=== PATIENT | female | born 1960 | race Caucasian/White ===

== ENCOUNTER → 2020-11-06 | Outpatient (CLI) | payer OTHER ==
[~2020-11-06] MED LIST: ASPIRIN81 MG PO; BACTRIM DS TAB1 EACH PO; BENADRYL 25MG C25 MG PO; BENTYL 20MG TAB20 MG PO; CARAFATE1 GM PO; CLEOCIN HCL300 MG PO; CYANOCOBAL1000 MCG/1 IM; DIGITEK125 MCG PO; DOXYCYCLINE HY100 MG PO; ELIQUIS5 MG PO; FLORASTOR250 MG PO; GABAPENTIN300 MG PO; IBUPROFEN800 MG PO; ISORDIL TAB 3030 MG PO; ISOSORBIDE MONO30 MG PO; LASIX20 MG PO; LASIX40 MG PO; LEVAQUIN500 MG PO; LIPITOR40 MG PO; LORADAMED10 MG PO; MONTELUKAST SOD10 MG PO; NITROSTAT0.4 MG SL; NORCO 5-325 TA1 EACH PO; NORCO 7.5-3251 EACH PO; OMEPRAZOLE40 MG PO; OMNICEF 300 MG300 MG PO; PROTONIX40 MG PO; PROVENTIL HFA6.7 GM INH; PROZAC40 MG PO; REGLAN10 MG PO; SARAFEM20 MG PO; SOTALOL AF80 MG PO; SOTALOL80 MG PO; TIZANIDINE HCL4 MG PO; TRAZODONE HCL100 MG PO; ULTRAM50 MG PO; VENTOLIN HFA 66.7 GM INH; VITAMIN C500 M1 PO; VITAMIN D250000 UNIT PO; ZANAFLEX4 MG PO; ZOFRAN4 MG PO
== END ==
LOC: EXRD 13:21
DX: M54.5 Low back pain (principal); M47.816 Spondylosis without myelopathy or radiculopathy, lumbar region
CPT/HCPCS: 72100

== ENCOUNTER 2020-11-30 22:06 | Emergency (ER) | payer OTHER ==
[~2020-11-30 22:06] MED LIST changes: -BACTRIM DS TAB1 EACH PO; -DOXYCYCLINE HY100 MG PO; -FLORASTOR250 MG PO; -REGLAN10 MG PO; -ULTRAM50 MG PO
[2020-11-30 23:19] LABS: RED BLOOD COUNT 4.09 M/UL (4.00-5.10); WHITE BLOOD COUNT 9.2 K/UL (4.5-11.0)
[2020-11-30 23:37] LABS: BUN/CREATININE RATIO 21 (0-10)
[2020-12-01] MEDS ORDERED: FLORASTOR250 MG PO (02:07)
[2020-12-01] MEDS ORDERED: REGLAN10 MG PO (02:07)
== END 2020-12-01 02:05 | disposition home or self-care (01) ==
LOC: ER1 22:06
PROVIDERS: Emergency Medicine
DX: R11.2 Nausea with vomiting, unspecified (principal); R19.7 Diarrhea, unspecified; I48.91 Unspecified atrial fibrillation; Z20.822 Contact with and (suspected) exposure to COVID-19; I10 Essential (primary) hypertension; Z88.0 Allergy status to penicillin; Z88.1 Allergy status to other antibiotic agents; Z87.891 Personal history of nicotine dependence
CPT/HCPCS: 0240U; 36415; 80053; 83690; 85025; 99284

== ENCOUNTER → 2020-12-10 | Outpatient (CLI) | payer OTHER ==
[~2020-12-10] MED LIST changes: +BACTRIM DS TAB1 EACH PO; +DOXYCYCLINE HY100 MG PO; +FLORASTOR250 MG PO; +REGLAN10 MG PO; +ULTRAM50 MG PO
== END ==
LOC: EXRD 14:58
DX: M54.6 Pain in thoracic spine (principal)
CPT/HCPCS: 72070; 73030

== ENCOUNTER → 2021-02-07 | Outpatient (CLI) | payer OTHER | LOC: KOH-I 15:01 | DX: M79.672 Pain in left foot (principal); M79.671 Pain in right foot; Z98.890 Other specified postprocedural states | CPT/HCPCS: 73630 ==

== ENCOUNTER → 2021-03-22 | Outpatient (CLI) | payer OTHER | LOC: KOH-I 09:38 | DX: G57.62 Lesion of plantar nerve, left lower limb (principal) | CPT/HCPCS: 73700 ==

== ENCOUNTER 2021-03-30 20:59 | Emergency (ER) | payer OTHER ==
[~2021-03-30 20:59] MED LIST changes: -BACTRIM DS TAB1 EACH PO; -DOXYCYCLINE HY100 MG PO; -ULTRAM50 MG PO
[2021-03-30 22:17] LABS: HEMOGLOBIN 12.4 gm/dl (12.3-15.3); RED BLOOD COUNT 3.94 M/UL (4.00-5.10); WHITE BLOOD COUNT 9.6 K/UL (4.5-11.0)
[2021-03-30 22:35] LABS: BUN/CREATININE RATIO 8 (0-10)
[2021-03-31] MEDS ORDERED: BACTRIM DS TAB1 EACH PO (00:11)
== END 2021-03-31 00:25 | disposition home or self-care (01) ==
LOC: ER1 20:59
PROVIDERS: Physician Assistant
DX: N39.0 Urinary tract infection, site not specified (principal); I11.9 Hypertensive heart disease without heart failure; J44.9 Chronic obstructive pulmonary disease, unspecified; Z90.49 Acquired absence of other specified parts of digestive tract; Z87.440 Personal history of urinary (tract) infections
CPT/HCPCS: 80053; 81001; 85025; 99284

== ENCOUNTER 2021-04-04 19:17 | Emergency (ER) | payer OTHER ==
[~2021-04-04 19:17] MED LIST changes: +BACTRIM DS TAB1 EACH PO
[2021-04-04 20:26] LABS: HEMOGLOBIN 13.3 gm/dl (12.3-15.3); RED BLOOD COUNT 4.19 M/UL (4.00-5.10); WHITE BLOOD COUNT 11.6 K/UL (4.5-11.0)
[2021-04-04 20:40] LABS: BUN/CREATININE RATIO 12 (0-10)
[2021-04-04] MEDS ORDERED: ULTRAM50 MG PO (21:39)
== END 2021-04-04 22:00 | disposition home or self-care (01) ==
LOC: ER1 19:17
PROVIDERS: Preventive Medicine Occupational Medicine
DX: R10.9 Unspecified abdominal pain (principal); Z20.822 Contact with and (suspected) exposure to COVID-19; I27.20 Pulmonary hypertension, unspecified; R11.2 Nausea with vomiting, unspecified
CPT/HCPCS: 0240U; 80053; 81001; 82009; 83605; 83690; 85025; 85652; 86140; 87086; 96365; 96375; 99284; J1170; J1335; J2405; J7030

== ENCOUNTER → 2021-04-18 | Outpatient (CLI) | payer OTHER ==
[~2021-04-18] MED LIST changes: +DOXYCYCLINE HY100 MG PO; +ULTRAM50 MG PO
== END ==
LOC: CT 10:33
DX: R10.9 Unspecified abdominal pain (principal); N32.89 Other specified disorders of bladder; N88.8 Other specified noninflammatory disorders of cervix uteri
CPT/HCPCS: Q9967

== ENCOUNTER 2021-04-25 17:57 | Emergency (ER) | payer OTHER ==
[~2021-04-25 17:57] MED LIST changes: -DOXYCYCLINE HY100 MG PO
[2021-04-25 19:24] LABS: HEMOGLOBIN 12.5 gm/dl (12.3-15.3); RED BLOOD COUNT 3.91 M/UL (4.00-5.10); WHITE BLOOD COUNT 11.4 K/UL (4.5-11.0)
[2021-04-25 19:43] LABS: BUN/CREATININE RATIO 13 (0-10)
[2021-04-25] MEDS ORDERED: IBUPROFEN800 MG PO (20:47)
[2021-04-25] MEDS ORDERED: DOXYCYCLINE HY100 MG PO (20:47)
== END 2021-04-25 20:02 | disposition home or self-care (01) ==
LOC: ER1 17:57
PROVIDERS: Preventive Medicine Occupational Medicine
DX: N73.9 Female pelvic inflammatory disease, unspecified (principal); J44.9 Chronic obstructive pulmonary disease, unspecified; I10 Essential (primary) hypertension; I25.10 Atherosclerotic heart disease of native coronary artery without angina pectoris; F17.210 Nicotine dependence, cigarettes, uncomplicated
CPT/HCPCS: 80053; 81001; 85025; 86140; 87086; 96365; 96375; 99284; J0696; J1170; J2405; J7030

== ENCOUNTER → 2021-05-15 | Outpatient (CLI) | payer OTHER ==
[~2021-05-15] MED LIST changes: +DOXYCYCLINE HY100 MG PO
== END ==
LOC: US 07:59
DX: Q44.6 Cystic disease of liver (principal); K76.0 Fatty (change of) liver, not elsewhere classified
CPT/HCPCS: 76705

== ENCOUNTER → 2021-05-28 | Outpatient (CLI) | payer OTHER | LOC: MAMO 09:33 | DX: Z12.31 Encounter for screening mammogram for malignant neoplasm of breast (principal); M79.89 Other specified soft tissue disorders | CPT/HCPCS: 76882; 77063; 77067 ==

== ENCOUNTER → 2021-06-03 | Outpatient (CLI) | payer OTHER | LOC: HEART 5 12:38 | DX: I48.91 Unspecified atrial fibrillation (principal); R06.02 Shortness of breath; I08.3 Combined rheumatic disorders of mitral, aortic and tricuspid valves; I27.20 Pulmonary hypertension, unspecified | CPT/HCPCS: 93306 ==

== ENCOUNTER 2021-08-18 12:40 | Emergency (ER) | payer OTHER ==
[2021-08-18 13:48] LABS: HEMOGLOBIN 13.3 gm/dl (12.3-15.3); RED BLOOD COUNT 4.15 M/UL (4.00-5.10); WHITE BLOOD COUNT 10.2 K/UL (4.5-11.0)
[2021-08-18 13:52] LABS: ADENOVIRUS F 40/41 Not Detected (Negative); ASTROVIRUS Not Detected (Negative); CAMPYLOBACTER Not Detected (Negative); CLOSTRIDIUM DIFFICILE TOX A/B Not Detected (Negative); CRYPTOSPORIDIUM Not Detected (Negative); E.COLI 0157 Not Detected (Negative); ENTAMOEBA HISTOLYTICA Not Detected (Negative); ENTEROAGGREGATIVE E.COLI (EAEC Not Detected (Negative); ENTEROPATHOGENIC E.COLI (EPEC) Not Detected (Negative); ENTEROTOXIGENIC E.COLI (ETEC) Not Detected (Negative); GIARDIA LAMBLIA Not Detected (Negative); NOROVIRUS GI/GII Not Detected (Negative); PLESIOMONAS SHIGELLOIDES Not Detected (Negative); ROTOVIRUS A Not Detected (Negative); SALMONELLA Not Detected (Negative); SAPOVIRUS Not Detected (Negative); SHIG/ENTEROINVAS.ECOLI (EIEC) Not Detected (Negative); SHIGA-LIK TOX.PRO.E.COLI (STEC Not Detected (Negative); VIBRIO Not Detected (Negative); VIBRIO CHOLERAE Not Detected (Negative); YERSINIA ENTEROCOLITICA Not Detected (Negative)
[2021-08-18 14:15] LABS: BUN/CREATININE RATIO 12 (0-10)
[2021-08-18] MEDS ORDERED: ZOFRAN4 MG PO (16:21)
== END 2021-08-18 16:31 | disposition home or self-care (01) ==
LOC: ER1 12:40
PROVIDERS: Physician Assistant
DX: R10.30 Lower abdominal pain, unspecified (principal); R19.7 Diarrhea, unspecified; R10.813 Right lower quadrant abdominal tenderness; Z20.822 Contact with and (suspected) exposure to COVID-19; R10.814 Left lower quadrant abdominal tenderness; Z90.49 Acquired absence of other specified parts of digestive tract; Z88.0 Allergy status to penicillin; Z88.8 Allergy status to other drugs, medicaments and biological substances
CPT/HCPCS: 80053; 81001; 82550; 82553; 83605; 83690; 83874; 84484; 85025; 87086; 87507; 96374; 96375; 99284; J2270; J2405; U0002

== ENCOUNTER 2021-09-28 22:08 | Emergency (ER) | payer OTHER ==
[2021-09-29 00:27] LABS: HEMOGLOBIN 13.3 gm/dl (12.3-15.3); RED BLOOD COUNT 4.23 M/UL (4.00-5.10); WHITE BLOOD COUNT 12.9 K/UL (4.5-11.0)
[2021-09-29 00:56] LABS: BUN/CREATININE RATIO 12 (0-10)
[2021-09-29] MEDS ORDERED: PREDNISONE20 MG PO (02:48)
[2021-09-29] MEDS ORDERED: DOXYCYCLINE HY100 M2 PO (02:48)
== END 2021-09-29 03:00 | disposition home or self-care (01) ==
LOC: ER1 22:08
PROVIDERS: Emergency Medicine
DX: J44.1 Chronic obstructive pulmonary disease with (acute) exacerbation (principal); I11.9 Hypertensive heart disease without heart failure; Z20.822 Contact with and (suspected) exposure to COVID-19
CPT/HCPCS: 71045; 80048; 82550; 82553; 83605; 83874; 83880; 84484; 85025; 87040; 94664; 94760; 99285; J2930; U0002

== ENCOUNTER → 2021-11-07 | Outpatient (CLI) | payer OTHER ==
[~2021-11-07] MED LIST changes: +DOXYCYCLINE HY100 M2 PO; +PREDNISONE20 MG PO
== END ==
LOC: EXRD 15:13
DX: M25.512 Pain in left shoulder (principal); M25.542 Pain in joints of left hand; S42.132A Displaced fracture of coracoid process, left shoulder, initial encounter for closed fracture; W19.XXXA Unspecified fall, initial encounter
CPT/HCPCS: 73030; 73140

== ENCOUNTER → 2021-11-11 | Outpatient (CLI) | payer OTHER | LOC: KOH-I 13:35 | DX: M79.672 Pain in left foot (principal) | CPT/HCPCS: 73630 ==

== ENCOUNTER → 2021-11-25 | Outpatient (CLI) | payer OTHER | LOC: KOH-I 12:54 | DX: S42.142A Displaced fracture of glenoid cavity of scapula, left shoulder, initial encounter for closed fracture (principal); M24.012 Loose body in left shoulder | CPT/HCPCS: 73200 ==

== ENCOUNTER → 2021-12-10 | Outpatient (CLI) | payer OTHER | LOC: EXRD 11-18 09:00 | DX: K76.89 Other specified diseases of liver (principal); K76.0 Fatty (change of) liver, not elsewhere classified; Z90.49 Acquired absence of other specified parts of digestive tract | CPT/HCPCS: 76705 ==

== ENCOUNTER → 2022-01-07 | Outpatient (CLI) | payer OTHER | LOC: EXRD 01-06 11:00 | DX: I65.29 Occlusion and stenosis of unspecified carotid artery (principal); R94.39 Abnormal result of other cardiovascular function study | CPT/HCPCS: 93880 ==

== ENCOUNTER → 2022-02-14 | Outpatient (CLI) | payer OTHER | LOC: EXRD 10:36 | DX: M25.561 Pain in right knee (principal) | CPT/HCPCS: 73562 ==

== ENCOUNTER 2022-02-23 17:10 | Emergency (ER) | payer OTHER ==
[2022-02-23] MEDS ORDERED: BACTROBAN OINT22 GM EXT (17:48)
== END 2022-02-23 18:04 | disposition home or self-care (01) ==
LOC: ER1 17:10
DX: T25.322A Burn of third degree of left foot, initial encounter (principal); T25.321A Burn of third degree of right foot, initial encounter; I48.91 Unspecified atrial fibrillation; I27.20 Pulmonary hypertension, unspecified; Z87.891 Personal history of nicotine dependence; Z79.01 Long term (current) use of anticoagulants; Z88.0 Allergy status to penicillin; X15.0XXA Contact with hot stove (kitchen), initial encounter
CPT/HCPCS: 16020; 99283

== ENCOUNTER → 2022-03-06 | Outpatient (CLI) | payer OTHER ==
[~2022-03-06] MED LIST changes: +BACTROBAN OINT22 GM EXT
== END ==
LOC: EXRD 13:44
DX: M85.88 Other specified disorders of bone density and structure, other site (principal); Z78.0 Asymptomatic menopausal state
CPT/HCPCS: 77080

== ENCOUNTER → 2022-03-06 | Outpatient (CLI) | payer OTHER | LOC: WCC 07:04 | DX: T24.302A Burn of third degree of unspecified site of left lower limb, except ankle and foot, initial encounter (principal); T31.0 Burns involving less than 10% of body surface; I10 Essential (primary) hypertension; I25.10 Atherosclerotic heart disease of native coronary artery without angina pectoris; J44.9 Chronic obstructive pulmonary disease, unspecified; G47.30 Sleep apnea, unspecified; Z88.0 Allergy status to penicillin; Z87.891 Personal history of nicotine dependence; Z79.01 Long term (current) use of anticoagulants ==

== ENCOUNTER 2022-04-18 20:58 | Emergency (ER) | payer OTHER ==
[2022-04-18 21:55] LABS: RED BLOOD COUNT 4.11 M/UL (4.00-5.10); WHITE BLOOD COUNT 12.4 K/UL (4.5-11.0)
[2022-04-18 22:12] LABS: BUN/CREATININE RATIO 19 (0-10)
== END 2022-04-19 01:14 | disposition left against medical advice (07) ==
LOC: ER1 20:58
PROVIDERS: Physician Assistant
DX: Z53.21 Procedure and treatment not carried out due to patient leaving prior to being seen by health care provider (principal)
CPT/HCPCS: 80053; 81001; 83690; 85025

== ENCOUNTER → 2022-06-03 | Outpatient (CLI) | payer OTHER | LOC: EXRD 05-14 15:00 | DX: N13.30 Unspecified hydronephrosis (principal) | CPT/HCPCS: 76775 ==

== ENCOUNTER → 2022-07-09 | Outpatient (CLI) | payer OTHER | LOC: HEART 5 08:58 | DX: J44.9 Chronic obstructive pulmonary disease, unspecified (principal) | CPT/HCPCS: 94060; 94729 ==